=== PATIENT | female | born 1995 | race Asian ===

== ENCOUNTER → 2016-07-28 | Outpatient (REF) | payer OTHER ==
[~2016-07-28] MED LIST: ACET500C PO; ANUS2.5C2 PR; DOCU10CA PO; IBUP800T23 PO; MOM30SS PO; VITAPRTA PO
== END ==
LOC: M LAB REF 16:56
PROVIDERS: ATTEND Advanced Practice Midwife
DX: Z34.83 Encounter for supervision of other normal pregnancy, third trimester (principal)

== ENCOUNTER 2016-08-04 20:53 | Inpatient (IN) | payer OTHER ==
[~2016-08-04] VITALS: Ht 160 cm; Wt 64.0 kg
[2016-08-04] VITALS (10 sets, daily range): BP systolic 111–139; BP diastolic 57–78
[2016-08-04] MEDS ORDERED: LR 1,000 ML IV SCH (21:41)
[2016-08-04] MEDS ORDERED: LACTATED RINGER'S 1000 ML IV STA (21:41)
[2016-08-04] MEDS ORDERED: FENTANYL 2MCG/ML ROPIVACAINE 0.2% NACL 250 ML CADD As Ordered ONE (23:00)
[2016-08-04 23:05] LABS: MEAN CORPUSCULAR HEMOGLOBIN 22.4 pg (27.0-33.0); MEAN CORPUSCULAR HGB CONC 31.7 g/dl (32.0-36.5); MEAN CORPUSCULAR VOLUME 70.7 fl (80.0-96.0); RED CELL DISTRIBUTION WIDTH 15.3 % (11.5-14.5); WHITE BLOOD COUNT 11.2 K/mm3 (4.0-10.0)
[2016-08-04] MEDS ORDERED: diphenhydrAMINE INJ 50MG/ML VIAL (J1200) IV PRN (23:45)
[2016-08-04] MEDS ORDERED: EPIDURAL/PCA KEYS XX PRN (23:45)
[2016-08-04] MEDS ORDERED: ONDANSETRON 4MG/2ML VIAL (J2405) IV PRN (23:45)
[2016-08-04] MEDS ORDERED: EPIDURAL COMMENT XX SCH (23:45)
[2016-08-04] MEDS ORDERED: NALOXONE INJ 0.4 MG/1 ML VIAL (J2310) IV PRN (23:45)
[2016-08-04] MEDS ORDERED: FENTANYL/ROPIVACAINE/NACL CADD 250 ML EPIDURAL SCH (23:45)
[2016-08-04] MEDS ORDERED: ePHEDrine SULFATE 25 MG/5 ML(5MG/ML) SYRINGE IV PRN (23:45)
[2016-08-04] MEDS ORDERED: REFRIGERATOR IV KEYS XX PRN (23:45)
[2016-08-04] MEDS ORDERED: LACTATED RINGER'S 1000 ML IV PRN (23:45)
[2016-08-05] VITALS (19 sets, daily range): BP systolic 97–123; BP diastolic 53–81
[2016-08-05] MEDS ORDERED: PRENTAB9 PO (01:14)
[2016-08-05] MEDS ORDERED: VITA-112 PO (01:14)
[2016-08-05] MEDS ORDERED: OXYTOCIN 30 UNITS IN 0.9% NaCl 500ML IV BAG (J2590) As Ordered ONE (02:31)
[2016-08-05] MEDS ORDERED: LR 1,000 ML IV SCH (05:01)
[2016-08-05] MEDS ORDERED: OXYTOCIN DRIP 30 UNITS in APPROPRIATE DILUENT 1 EA IV SCH (05:01)
[2016-08-05] MEDS ORDERED: MEASLES,MUMPS,RUBELLA VACCINE INJ (MMR-II) (90707) SC SCH (05:15)
[2016-08-05] MEDS ORDERED: DIBUCAINE 1% OINTMENT 30GM TOP PRN (05:15)
[2016-08-05] MEDS ORDERED: ACETAMINOPHEN 500 MG TAB PO PRN (05:15)
[2016-08-05] MEDS ORDERED: RHOGAM 300 MCG (1500 IU) INJ (J2790) IM SCH (05:15)
[2016-08-05] MEDS ORDERED: ONDANSETRON 4MG/2ML VIAL (J2405) IV PRN (05:15)
[2016-08-05] MEDS ORDERED: DOCUSATE SODIUM 100 MG CAP PO PRN (05:15)
[2016-08-05] MEDS ORDERED: PROMETHAZINE 25 MG TAB PO PRN (05:15)
[2016-08-05] MEDS: PRENATAL VITAMIN TAB PO SCH (07:40)
[2016-08-05] MEDS: IBUPROFEN 800 MG TAB PO PRN (14:56)
[2016-08-06 06:11] VITALS: BP 111/57
[2016-08-06] MEDS: PRENATAL VITAMIN TAB PO SCH (07:41)
[2016-08-06] MEDS: IBUPROFEN 800 MG TAB PO PRN (07:41)
== END 2016-08-06 15:25 | disposition home or self-care (01) | DRG 560 ==
LOC: M LDO 20:53 → M LDI 21:32 → M OBS 08-05 06:34
PROVIDERS: ADMIT Obstetrics & Gynecology; ATTEND Obstetrics & Gynecology
PROC: 10E0XZZ Delivery of Products of Conception, External Approach (ICD-10-PCS; principal; 2016-08-05)
PROC: 0KQM0ZZ Repair Perineum Muscle, Open Approach (ICD-10-PCS; 2016-08-05)
PROC: 10907ZC Drainage of Amniotic Fluid, Therapeutic from Products of Conception, Via Natural or Artificial Opening (ICD-10-PCS; 2016-08-05)
DX: O70.1 Second degree perineal laceration during delivery (principal); Z37.0 Single live birth; Z3A.38 38 weeks gestation of pregnancy

== ENCOUNTER 2016-08-12 21:43 | Emergency (ER) | payer OTHER ==
[~2016-08-12 21:43] MED LIST changes: +PRENTAB9 PO; +VITA-112 PO
[2016-08-13] MEDS ORDERED: OXYCODONE/APAP 5MG/325MG(BULK) 1 TAB TAB As Ordered ONE (03:05)
--- NOTE | 2016-08-13 03:16 | EDDOCDS ---
Nurse's Notes [facility] Name: Chandra Ca Age: 21 yrs Sex: Female : 1995 Arrival Date: 08/12/2016 Time: 21:43 Bed 10 Private MD: NO PRIMARY PHYSICIAN, . Diagnosis: Hemorrhoids and perianal venous thrombosis Presentation: 08/12 21:47 Presenting complaint: Patient states: PER PT 1 WEEK AGO SHE HAD A VAGINAL DELIVERY & 2 tm5 DAYS AGO SHE DEVELOPED RECTAL PAIN & BLEEDING FROM HEMORRHOIDS, PT IS UNABLE TO HANDLE THE PAIN, CAN'T SIT WITHOUT SEVERE PAIN. Adult Sepsis Screening: The patient does not have new or worsening altered mentation. Patient's respiratory rate is less than 22. Systolic blood pressure is greater than 100. Patient has a qSOFA score of 0- Negative Sepsis Screen. Suicide/Homicide risk assessment- the patient denies having any suicidal and/or homicidal ideations and does not present with any other emotional, behavioral or mental health complaints. Status: Patient is not a human services professional or dependent. Transition of care: patient was not received from another setting of care. 21:47 Acuity: CARLOS Level 3 tm5 21:47 Method Of Arrival: Walkin/Carried/Asstd tm5 Triage Assessment: 21:50 General: Appears uncomfortable, Behavior is appropriate for age, cooperative. Pain: tm5 Location: RECTAL PAIN Pain currently is 7 out of 10 on a pain scale. Quality of pain is described as burning. Pt Declines HIV testing. Neurological: Level of Consciousness is awake, alert, Oriented to person, place, time. Respiratory: Airway Respiratory effort is even, unlabored, Respiratory pattern is regular, symmetrical. Derm: Skin is pink, warm & dry. normal. ENGRAVER MACHINE: 21:50 LMP N/A - Recent tm5 Historical: - Allergies: no known allergies; - Home Meds: 1. 1 mg Oral tab 2. Vitamin D Unknown Oral daily - PMHx: none; - PSHx: none; - Social history: Smoking status: Patient states was never smoker of tobacco. No barriers to communication noted, The patient speaks fluent Polish. - Family history: Not pertinent. - : The pt / caregiver states he / she is not on anticoagulants. Home medication list is obtained from the patient. - Exposure Risk Screening:: None identified. Screenin:51 Screening information is obtained from the patient. Fall risk: No risks identified. tm5 Assistance ADL's: requires no assistance with activities of daily living. Abuse/DV Screen: The patient / caregiver reports he/she is: not in a situation that causes fear, pain or injury. Nutritional screening: No deficits noted. Advance Directives: Currently, there is no health care proxy. There is no active DNR order. home support is adequate. Assessment: 08/13 00:17 General: Appears uncomfortable, Behavior is cooperative, quiet. Neurological: Level of nn1 Consciousness is awake, alert. Respiratory: Airway is patent Respiratory effort is even, unlabored, Respiratory pattern is regular, symmetrical. Derm: Skin is pink, warm & dry. 01:23 General: Appears uncomfortable, Behavior is cooperative. Pain: Location: rectal area tm5 Pain currently is 9 out of 10 on a pain scale. Quality of pain is described as burning. Neurological: Level of Consciousness is awake, alert, Oriented to person, place, time. Respiratory: Airway is patent Respiratory effort is even, unlabored, Respiratory pattern is regular, symmetrical. GI: No deficits noted. : No deficits noted. Derm: Skin is pink, warm & dry. normal. 03:14 Reassessment: Patient appears in no apparent distress at this time. Patient states tm5 symptoms have improved. Vital Signs: 08/12 21:45 BP 114 / 87; Pulse 110; Resp 20 S; Temp 98.9(O); Pulse Ox 99% on R/A; Weight 58.97 kg gr2 (R); Height 5 ft. 3 in. (160.02 cm) (R); Pain 10/10; 08/13 00:14 BP 117 / 80; Pulse 88; Resp 18; Temp 98.4; Pulse Ox 100% on R/A; nn1 03:14 BP 122 / 56; Pulse 78; Resp 18; Temp 98(O); Pulse Ox 99% on R/A; Pain 5/10; tm5 08/12 21:45 Body Mass Index 23.03 (58.97 kg, 160.02 cm) gr2 Vitals: 08/12 21:45 Log In Time: August 12, 2016 at 21:45. gr2 ED Course: 21:45 Patient visited by Marcial Brewster. gr2 21:45 NO PRIMARY PHYSICIAN, . is Private Physician. gr2 21:45 Patient moved to Waiting gr2 21:46 Patient visited by Marcial Brewster. gr2 21:46 Patient moved to Pre RCE gr2 21:50 Triage Initiated tm5 21:50 Family accompanied patient. tm5 08/13 01:21 Isabela Boland,JACLYN is Primary Nurse. nn1 01:21 Patient moved to 10 nn1 01:23 Patient visited by Rachael Marquez RN. tm5 01:23 Awaiting ED physician evaluation. tm5 01:23 The patient / caregiver is instructed regarding the plan of care and ED course. tm5 01:25 Maximino Cage DO is Attending Physician. mm11 01:26 Patient visited by Maximino Cage DO. mm11 01:47 Patient visited by Maximino Cage DO. mm11 02:51 Patient visited by Maximino Cage DO. mm11 02:52 Buster Burger MD is Referral Physician. mm11 03:05 Patient name changed from Chandra\S\\S\He\S\ to Chandra\S\ \S\He. EDMS 03:07 [facility] Payment Agreement was scanned into [employer] and attached to record. [facility] 03:14 Patient visited by Rachael Marquez RN. tm5 03:14 No IV's were initiated during this patient's visit. No procedures done that require tm5 assistance. Administered Medications: 03:07 Drug: oxyCODONE-acetaminophen 4 pack 1 packets [oxycodone-acetaminophen 5 mg-325 mg tm5 tablet (1 tabs)] {Co-Signature: [email or web address] (Tatyana Zamora RN).} Route: PO; 03:07 Follow up: Response: Med's dispensed home tm5 Order Results: There are currently no results for this order. Outcome: 02:53 Discharge ordered by Provider. 11 03:14 Discharge Assessment: Patient awake, alert and oriented x 3. No cognitive and/or tm5 functional deficits noted. Patient verbalized understanding of disposition instructions. patient administered narcotics - no. The following High Risk Discharge criteria are identified: None. Discharged to home ambulatory, with family. Condition: good Condition: stable. Discharge instructions given to patient, Instructed on discharge instructions, follow up and referral plans. medication usage, Demonstrated understanding of instructions, medications, Pt was receptive of discharge instructions/ teaching. No special radiology studies were completed. Property :Personal belongings accompany Pt. 03:15 Patient left the ED. tm5 Signatures: Dispatcher [employer] EDMS Maximino Cage DO DO mm11 Marcial Brewster gr2 Abigail Chilel Nikkole, RN RN nn1 Rachael Marquez RN RN tm5 Tatyana Zamora RN sls1 MTDD
--- NOTE | 2016-08-13 03:16 | EDDOCDS ---
Physician Documentation [facility] Name: Chandra Ca Age: 21 yrs Sex: Female : 1995 Arrival Date: 08/12/2016 Time: 21:43 Bed 10 Private MD: NO PRIMARY PHYSICIAN, . Disposition: 08/13/16 02:53 Discharged to Home/Self Care. Impression: Hemorrhoids and perianal venous thrombosis. - Condition is Stable. - Discharge Instructions: Hemorrhoids, Hemorrhoids, [id number]. - Local Pharmacy Hours, Medication Reconciliation form. - Follow up: Buster Burger MD; When: Today; Reason: Continuance of care. - Problem is an acute exacerbation. - Symptoms have improved. - Notes: CALL DR. BURGER'S OFFICE FIRST THING THIS MORNING AND HE WILL SEE YOU TO REMOVE THE BLOOD CLOTS. Historical: - Allergies: no known allergies; - Home Meds: 1. 1 mg Oral tab 2. Vitamin D Unknown Oral daily - PMHx: none; - PSHx: none; - Social history: Smoking status: Patient states was never smoker of tobacco. No barriers to communication noted, The patient speaks fluent Grenadian. - Family history: Not pertinent. - : The pt / caregiver states he / she is not on anticoagulants. Home medication list is obtained from the patient. - Exposure Risk Screening:: None identified. NETEZZA ARCHITECT: 08/12 21:50 LMP N/A - Recent tm5 Vital Signs: 21:45 BP 114 / 87; Pulse 110; Resp 20 S; Temp 98.9(O); Pulse Ox 99% on R/A; Weight 58.97 kg / gr2 130.01 lbs (R); Height 5 ft. 3 in. (160.02 cm) (R); Pain 10/10; 08/13 00:14 BP 117 / 80; Pulse 88; Resp 18; Temp 98.4; Pulse Ox 100% on R/A; nn1 03:14 BP 122 / 56; Pulse 78; Resp 18; Temp 98(O); Pulse Ox 99% on R/A; Pain 5/10; tm5 08/12 21:45 Body Mass Index 23.03 (58.97 kg, 160.02 cm) gr2 MDM: 02:10 Financial registration complete. [facility] 02:52 oxyCODONE-acetaminophen 4 pack 5 mg-325 mg 1 packets PO once; Dispense with pt, take as mm11 per instruction on package ordered. 03:07 [facility] Payment Agreement was scanned into [employer] and attached to record. [facility] Administered Medications: 03:07 Drug: oxyCODONE-acetaminophen 4 pack 1 packets [oxycodone-acetaminophen 5 mg-325 mg tm5 tablet (1 tabs)] {Co-Signature: [email or web address] (Tatyana Zamora RN).} Route: PO; 03:07 Follow up: Response: Med's dispensed home tm5 Signatures: Maximino Cage, DO mm11 Abigail Chilel Rachael Aguiar RN RN tm5 Tatyana Zamora RN sls1 The chart was reviewed and I authenticate all verbal orders and agree with the evaluation and treatment provided.Attachments: 03:07 [facility] Payment Agreement [facility] MTDDarcie
--- NOTE | 2016-08-15 04:16 | EDDOCDS ---
Physician Documentation [facility] Name: Chandra Ca Age: 21 yrs Sex: Female : 1995 Arrival Date: 08/12/2016 Time: 21:43 Bed 10 Private MD: NO PRIMARY PHYSICIAN, . Disposition: 08/13/16 02:53 Discharged to Home/Self Care. Impression: Hemorrhoids and perianal venous thrombosis. - Condition is Stable. - Discharge Instructions: Hemorrhoids, Hemorrhoids, [id number]. - Local Pharmacy Hours, Medication Reconciliation form. - Follow up: Buster Burger MD; When: Today; Reason: Continuance of care. - Problem is an acute exacerbation. - Symptoms have improved. - Notes: CALL DR. BURGER'S OFFICE FIRST THING THIS MORNING AND HE WILL SEE YOU TO REMOVE THE BLOOD CLOTS. Historical: - Allergies: no known allergies; - Home Meds: 1. 1 mg Oral tab 2. Vitamin D Unknown Oral daily - PMHx: none; - PSHx: none; - Social history: Smoking status: Patient states was never smoker of tobacco. No barriers to communication noted, The patient speaks fluent Colombian. - Family history: Not pertinent. - : The pt / caregiver states he / she is not on anticoagulants. Home medication list is obtained from the patient. - Exposure Risk Screening:: None identified. ACTIVITY AID: 08/12 21:50 LMP N/A - Recent tm5 Vital Signs: 21:45 BP 114 / 87; Pulse 110; Resp 20 S; Temp 98.9(O); Pulse Ox 99% on R/A; Weight 58.97 kg / gr2 130.01 lbs (R); Height 5 ft. 3 in. (160.02 cm) (R); Pain 10/10; 08/13 00:14 BP 117 / 80; Pulse 88; Resp 18; Temp 98.4; Pulse Ox 100% on R/A; nn1 03:14 BP 122 / 56; Pulse 78; Resp 18; Temp 98(O); Pulse Ox 99% on R/A; Pain 5/10; tm5 08/12 21:45 Body Mass Index 23.03 (58.97 kg, 160.02 cm) gr2 MDM: 02:10 Financial registration complete. [facility] 02:52 oxyCODONE-acetaminophen 4 pack 5 mg-325 mg 1 packets PO once; Dispense with pt, take as mm11 per instruction on package ordered. 03:07 [facility] Payment Agreement was scanned into [employer] and attached to record. [facility] 10:34 T-Sheet-- Draft Copy was scanned into [employer] and attached to record. gb Administered Medications: 03:07 Drug: oxyCODONE-acetaminophen 4 pack 1 packets [oxycodone-acetaminophen 5 mg-325 mg tm5 tablet (1 tabs)] {Co-Signature: [email or web address] (Tatyana Zamora RN).} Route: PO; 03:07 Follow up: Response: Med's dispensed home tm5 Signatures: Gina Zapata, Garrett Reg Maximino Vaughan DO DO mm11 Abigail Chilel [facility] Rachael Marquez,RN RN tm5 Tatyana Zamora RN sls1 The chart was reviewed and I authenticate all verbal orders and agree with the evaluation and treatment provided.Attachments: 03: [facility] Payment Agreement [facility] 10:34 T-Sheet-- Draft Copy gb Chart Complete MTDD
--- NOTE | 2016-08-15 04:16 | EDDOCDS ---
Physician Documentation [facility] Name: Chandra Ca Age: 21 yrs Sex: Female : 1995 Arrival Date: 08/12/2016 Time: 21:43 Bed 10 Private MD: NO PRIMARY PHYSICIAN, . Disposition: 08/13/16 02:53 Discharged to Home/Self Care. Impression: Hemorrhoids and perianal venous thrombosis. - Condition is Stable. - Discharge Instructions: Hemorrhoids, Hemorrhoids, [id number]. - Local Pharmacy Hours, Medication Reconciliation form. - Follow up: Buster Burger MD; When: Today; Reason: Continuance of care. - Problem is an acute exacerbation. - Symptoms have improved. - Notes: CALL DR. BURGER'S OFFICE FIRST THING THIS MORNING AND HE WILL SEE YOU TO REMOVE THE BLOOD CLOTS. Historical: - Allergies: no known allergies; - Home Meds: 1. 1 mg Oral tab 2. Vitamin D Unknown Oral daily - PMHx: none; - PSHx: none; - Social history: Smoking status: Patient states was never smoker of tobacco. No barriers to communication noted, The patient speaks fluent Australian. - Family history: Not pertinent. - : The pt / caregiver states he / she is not on anticoagulants. Home medication list is obtained from the patient. - Exposure Risk Screening:: None identified. ADMISSIONS SPECIALIST: 08/12 21:50 LMP N/A - Recent tm5 Vital Signs: 21:45 BP 114 / 87; Pulse 110; Resp 20 S; Temp 98.9(O); Pulse Ox 99% on R/A; Weight 58.97 kg / gr2 130.01 lbs (R); Height 5 ft. 3 in. (160.02 cm) (R); Pain 10/10; 08/13 00:14 BP 117 / 80; Pulse 88; Resp 18; Temp 98.4; Pulse Ox 100% on R/A; nn1 03:14 BP 122 / 56; Pulse 78; Resp 18; Temp 98(O); Pulse Ox 99% on R/A; Pain 5/10; tm5 08/12 21:45 Body Mass Index 23.03 (58.97 kg, 160.02 cm) gr2 MDM: 02:10 Financial registration complete. [facility] 02:52 oxyCODONE-acetaminophen 4 pack 5 mg-325 mg 1 packets PO once; Dispense with pt, take as mm11 per instruction on package ordered. 03:07 [facility] Payment Agreement was scanned into [employer] and attached to record. [facility] 10:34 T-Sheet-- Draft Copy was scanned into [employer] and attached to record. gb Administered Medications: 03:07 Drug: oxyCODONE-acetaminophen 4 pack 1 packets [oxycodone-acetaminophen 5 mg-325 mg tm5 tablet (1 tabs)] {Co-Signature: [email or web address] (Tatyana Zamora RN).} Route: PO; 03:07 Follow up: Response: Med's dispensed home tm5 Signatures: Gina Zapata, Garrett Reg Maximino Vaughan DO DO mm11 Abigail Chilel [facility] Rachael Marquez,RN RN tm5 Tatyana Zamora RN sls1 The chart was reviewed and I authenticate all verbal orders and agree with the evaluation and treatment provided.Attachments: 03: [facility] Payment Agreement [facility] 10:34 T-Sheet-- Draft Copy gb Chart Complete MTDD
--- NOTE | 2016-08-15 04:16 | EDDOCDS ---
Nurse's Notes [facility] Name: Chandra Ca Age: 21 yrs Sex: Female : 1995 Arrival Date: 08/12/2016 Time: 21:43 Bed 10 Private MD: NO PRIMARY PHYSICIAN, . Diagnosis: Hemorrhoids and perianal venous thrombosis Presentation: 08/12 21:47 Presenting complaint: Patient states: PER PT 1 WEEK AGO SHE HAD A VAGINAL DELIVERY & 2 tm5 DAYS AGO SHE DEVELOPED RECTAL PAIN & BLEEDING FROM HEMORRHOIDS, PT IS UNABLE TO HANDLE THE PAIN, CAN'T SIT WITHOUT SEVERE PAIN. Adult Sepsis Screening: The patient does not have new or worsening altered mentation. Patient's respiratory rate is less than 22. Systolic blood pressure is greater than 100. Patient has a qSOFA score of 0- Negative Sepsis Screen. Suicide/Homicide risk assessment- the patient denies having any suicidal and/or homicidal ideations and does not present with any other emotional, behavioral or mental health complaints. 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 Transition of care: patient was not received from another setting of care. 21:47 Acuity: CARLSO Level 3 tm5 21:47 Method Of Arrival: Walkin/Carried/Asstd tm5 Triage Assessment: 21:50 General: Appears uncomfortable, Behavior is appropriate for age, cooperative. Pain: tm5 Location: RECTAL PAIN Pain currently is 7 out of 10 on a pain scale. Quality of pain is described as burning. Pt Declines HIV testing. Neurological: Level of Consciousness is awake, alert, Oriented to person, place, time. Respiratory: Airway Respiratory effort is even, unlabored, Respiratory pattern is regular, symmetrical. Derm: Skin is pink, warm & dry. normal. RELEASE OF INFORMATION SPECIALIST: 21:50 LMP N/A - Recent tm5 Historical: - Allergies: no known allergies; - Home Meds: 1. 1 mg Oral tab 2. Vitamin D Unknown Oral daily - PMHx: none; - PSHx: none; - Social history: Smoking status: Patient states was never smoker of tobacco. No barriers to communication noted, The patient speaks fluent Pashto. - Family history: Not pertinent. - : The pt / caregiver states he / she is not on anticoagulants. Home medication list is obtained from the patient. - Exposure Risk Screening:: None identified. Screenin:51 Screening information is obtained from the patient. Fall risk: No risks identified. tm5 Assistance ADL's: requires no assistance with activities of daily living. Abuse/DV Screen: The patient / caregiver reports he/she is: not in a situation that causes fear, pain or injury. Nutritional screening: No deficits noted. Advance Directives: Currently, there is no health care proxy. There is no active DNR order. home support is adequate. Assessment: 08/13 00:17 General: Appears uncomfortable, Behavior is cooperative, quiet. Neurological: Level of nn1 Consciousness is awake, alert. Respiratory: Airway is patent Respiratory effort is even, unlabored, Respiratory pattern is regular, symmetrical. Derm: Skin is pink, warm & dry. 01:23 General: Appears uncomfortable, Behavior is cooperative. Pain: Location: rectal area tm5 Pain currently is 9 out of 10 on a pain scale. Quality of pain is described as burning. Neurological: Level of Consciousness is awake, alert, Oriented to person, place, time. Respiratory: Airway is patent Respiratory effort is even, unlabored, Respiratory pattern is regular, symmetrical. GI: No deficits noted. : No deficits noted. Derm: Skin is pink, warm & dry. normal. 03:14 Reassessment: Patient appears in no apparent distress at this time. Patient states tm5 symptoms have improved. Vital Signs: 08/12 21:45 BP 114 / 87; Pulse 110; Resp 20 S; Temp 98.9(O); Pulse Ox 99% on R/A; Weight 58.97 kg gr2 (R); Height 5 ft. 3 in. (160.02 cm) (R); Pain 10/10; 08/13 00:14 BP 117 / 80; Pulse 88; Resp 18; Temp 98.4; Pulse Ox 100% on R/A; nn1 03:14 BP 122 / 56; Pulse 78; Resp 18; Temp 98(O); Pulse Ox 99% on R/A; Pain 5/10; tm5 08/12 21:45 Body Mass Index 23.03 (58.97 kg, 160.02 cm) gr2 Vitals: 08/12 21:45 Log In Time: August 12, 2016 at 21:45. gr2 ED Course: 21:45 Patient visited by Marcial Brewster. gr2 21:45 NO PRIMARY PHYSICIAN, . is Private Physician. gr2 21:45 Patient moved to Waiting gr2 21:46 Patient visited by Marcial Brewster. gr2 21:46 Patient moved to Pre RCE gr2 21:50 Triage Initiated tm5 21:50 Family accompanied patient. tm5 08/13 01:21 Isabela Boland,JACLYN is Primary Nurse. nn1 01:21 Patient moved to 10 nn1 01:23 Patient visited by Rachael Marquez RN. tm5 01:23 Awaiting ED physician evaluation. tm5 01:23 The patient / caregiver is instructed regarding the plan of care and ED course. tm5 01:25 Maximino Cage DO is Attending Physician. mm11 01:26 Patient visited by Maximino Cage DO. mm11 01:47 Patient visited by Maximino Cage DO. mm11 02:51 Patient visited by Maximino Cage DO. mm11 02:52 Buster Burger MD is Referral Physician. mm11 03:05 Patient name changed from Chandra\S\\S\He\S\ to Chandra\S\ \S\He. EDMS 03:07 [facility] [place] was scanned into [employer] and attached to record. [facility] 03:14 Patient visited by Rachael Marquez RN. tm5 03:14 No IV's were initiated during this patient's visit. No procedures done that require tm5 assistance. 10:34 T-Sheet-- Draft Copy was scanned into [employer] and attached to record. gb Administered Medications: 03:07 Drug: oxyCODONE-acetaminophen 4 pack 1 packets [oxycodone-acetaminophen 5 mg-325 mg tm5 tablet (1 tabs)] {Co-Signature: [email or web address] (Tatyana Zamora RN).} Route: PO; 03:07 Follow up: Response: Med's dispensed home tm5 Order Results: There are currently no results for this order. Outcome: 02:53 Discharge ordered by Provider. mm11 03:14 Discharge Assessment: Patient awake, alert and oriented x 3. No cognitive and/or tm5 functional deficits noted. Patient verbalized understanding of disposition instructions. patient administered narcotics - no. The following High Risk Discharge criteria are identified: None. Discharged to home ambulatory, with family. Condition: good Condition: stable. Discharge instructions given to patient, Instructed on discharge instructions, follow up and referral plans. medication usage, Demonstrated understanding of instructions, medications, Pt was receptive of discharge instructions/ teaching. No special radiology studies were completed. Property :Personal belongings accompany Pt. 03:15 Patient left the ED. tm5 Signatures: Dispatcher [employer] EDMS Gina Zapata, Reg Reg gb Maximino Cage, DO mm11 Marcial Brewster gr2 Abigail Chilel NikkoleRN RN nn1 Rachael MarquezRN RN tm5 Tatyana Zamora RN sls1 Chart Complete MTDD
== END 2016-08-13 03:15 | disposition home or self-care (01) ==
LOC: M ED 21:43
DX: K64.9 Unspecified hemorrhoids (principal)

== ENCOUNTER → 2017-01-28 | Outpatient (REF) | payer OTHER ==
[~2017-01-28] MED LIST changes: +IBUP1TAB7 PO; -IBUP800T23 PO
== END ==
LOC: M SFHCLERA 11:19
PROVIDERS: ATTEND Physician Assistant
DX: Z11.3 Encounter for screening for infections with a predominantly sexual mode of transmission (principal)

== ENCOUNTER → 2017-01-31 | Outpatient (CLI) | payer OTHER ==
--- NOTE | 2017-01-31 11:46 | REP ---
Positive PPD. COMPARISON: None. FINDINGS: The superior mediastinal structures are midline. The cardiac silhouette is unremarkable in size, shape, and position. The diaphragmatic surfaces of the lungs are regular, and the costophrenic angles are clear. The pulmonary hand are clear. The imaged osseous structures are intact. IMPRESSION: There is no acute cardiopulmonary disease. If clinical suspicion is high, CT is more sensitive. Signed by Russel Owen DO 01/31/2017 01:58 P
== END ==
LOC: M LRY 11:05
PROVIDERS: ATTEND Nurse Practitioner Family
DX: R76.11 Nonspecific reaction to tuberculin skin test without active tuberculosis (principal)

== ENCOUNTER → 2018-06-21 | Outpatient (CLI) | payer OTHER ==
[2018-06-21 13:00] LABS: CONTROL LINE HCG INT CTR LINE PRESENT; HCG, SERUM QUALITATIVE NEGATIVE (NEGATIVE)
== END ==
LOC: M SMT 09:50
DX: N92.6 Irregular menstruation, unspecified (principal)
CPT/HCPCS: 84443

== ENCOUNTER → 2018-06-30 | Outpatient (REF) | payer OTHER | LOC: M LAB REF 13:29 | DX: Z12.4 Encounter for screening for malignant neoplasm of cervix (principal) ==

== ENCOUNTER → 2018-10-24 | Outpatient (REF) | payer OTHER | LOC: M SFHCLERA 15:07 | PROVIDERS: ATTEND Physician Assistant | DX: J02.9 Acute pharyngitis, unspecified (principal) ==

== ENCOUNTER → 2021-02-06 | Outpatient (CLI) | payer OTHER ==
[2021-02-06 13:16] LABS: BASO % 0.5 % (0.0-1.0); EOS # 0.2 10^3/uL (0.0-0.5); EOS % 3.5 % (0.0-3.0); HEMOGLOBIN 12.4 g/dl (12.0-15.5); LYMPH # 1.9 10^3/uL (1.5-5.0); LYMPH % 28.5 % (24.0-44.0); MEAN CORPUSCULAR HEMOGLOBIN 21.5 pg (27.0-33.0); MEAN CORPUSCULAR HGB CONC 30.2 g/dl (32.0-36.5); MEAN CORPUSCULAR VOLUME 71.2 fl (80.0-96.0); MONO # 0.4 10^3/uL (0.0-0.8); MONO % 6.8 % (2.0-8.0); NEUTROPHILS # 3.9 10^3/uL (1.5-8.5); NEUTROPHILS % 60.5 % (36.0-66.0); PLATELET COUNT, AUTOMATED 298 10^3/uL (150-450); RED BLOOD COUNT 5.76 10^6/uL (4.00-5.40); WHITE BLOOD COUNT 6.5 10^3/uL (4.0-10.0)
[2021-02-06 13:44] LABS: ALBUMIN 4.3 GM/DL (3.2-5.2); ALT/SGPT 24 U/L (12-78); BILIRUBIN,TOTAL 0.5 MG/DL (0.2-1.0); BLOOD UREA NITROGEN 10 MG/DL (7-18); CALCIUM LEVEL 8.8 MG/DL (8.5-10.1); CARBON DIOXIDE LEVEL 29 MEQ/L (21-32); CHLORIDE LEVEL 108 MEQ/L (98-107); CREATININE FOR GFR 0.45 MG/DL (0.55-1.30); GLOMERULAR FILTRATION RATE > 60.0 (>60); GLUCOSE, FASTING 89 MG/DL (70-100); POTASSIUM SERUM 3.7 MEQ/L (3.5-5.1); SODIUM LEVEL 136 MEQ/L (136-145)
[2021-02-06 13:51] LABS: TOTAL 25(OH) VITAMIN D 21.7 NG/ML (30.0-100.0)
== END ==
LOC: M PLALAB 10:16
PROVIDERS: ATTEND Nurse Practitioner Family
DX: E55.9 Vitamin D deficiency, unspecified (principal)

== ENCOUNTER → 2022-02-24 | Outpatient (CLI) | payer OTHER ==
[2022-02-24 14:24] LABS: BASO # 0.1 10^3/uL (0.0-0.2); BASO % 0.6 % (0.0-1.0); EOS # 0.3 10^3/uL (0.0-0.5); EOS % 3.5 % (0.0-3.0); HEMATOCRIT 40.8 % (36.0-47.0); HEMOGLOBIN 12.3 g/dl (12.0-15.5); LYMPH # 2.1 10^3/uL (1.5-5.0); LYMPH % 25.6 % (24.0-44.0); MEAN CORPUSCULAR HEMOGLOBIN 21.4 pg (27.0-33.0); MEAN CORPUSCULAR HGB CONC 30.1 g/dl (32.0-36.5); MONO # 0.5 10^3/uL (0.0-0.8); MONO % 6.7 % (2.0-8.0); NEUTROPHILS # 5.1 10^3/uL (1.5-8.5); NEUTROPHILS % 63.2 % (36.0-66.0); PLATELET COUNT, AUTOMATED 262 10^3/uL (150-450); RED BLOOD COUNT 5.75 10^6/uL (4.00-5.40); WHITE BLOOD COUNT 8.1 10^3/uL (4.0-10.0)
[2022-02-24 15:25] LABS: ALBUMIN 3.9 GM/DL (3.2-5.2); ALT/SGPT 27 U/L (12-78); BILIRUBIN,TOTAL 0.4 MG/DL (0.2-1.0); BLOOD UREA NITROGEN 12 MG/DL (7-18); CALCIUM LEVEL 8.8 MG/DL (8.5-10.1); CARBON DIOXIDE LEVEL 28 MEQ/L (21-32); CHLORIDE LEVEL 104 MEQ/L (98-107); CREATININE FOR GFR 0.47 MG/DL (0.55-1.30); FERRITIN 79 NG/ML (8-252); GLOMERULAR FILTRATION RATE > 60.0 (>60); GLUCOSE, FASTING 90 MG/DL (70-100); IRON (FE) 93 UG/DL (50-170); PERCENT SATURATION 34.2 % (13.2-45.0); POTASSIUM SERUM 3.9 MEQ/L (3.5-5.1); SODIUM LEVEL 137 MEQ/L (136-145); TOTAL IRON BINDING CAPACITY 272 UG/DL (250-450); TOTAL PROTEIN 7.8 GM/DL (6.4-8.2)
== END ==
LOC: M PLALAB 09:47
PROVIDERS: ATTEND Nurse Practitioner Family
DX: R71.8 Other abnormality of red blood cells (principal)

== ENCOUNTER → 2023-03-15 | Outpatient (CLI) | payer OTHER ==
[2023-03-15 10:14] LABS: BASO # 0.1 10^3/uL (0.0-0.2); BASO % 0.6 % (0.0-1.0); EOS # 0.3 10^3/uL (0.0-0.5); EOS % 3.5 % (0.0-3.0); HEMATOCRIT 39.1 % (36.0-47.0); LYMPH # 1.8 10^3/uL (1.5-5.0); LYMPH % 20.5 % (24.0-44.0); MEAN CORPUSCULAR HEMOGLOBIN 21.8 pg (27.0-33.0); MEAN CORPUSCULAR HGB CONC 30.7 g/dl (32.0-36.5); MONO # 0.5 10^3/uL (0.0-0.8); MONO % 6.2 % (2.0-8.0); PLATELET COUNT, AUTOMATED 261 10^3/uL (150-450); RED BLOOD COUNT 5.51 10^6/uL (4.00-5.40); WHITE BLOOD COUNT 8.7 10^3/uL (4.0-10.0)
[2023-03-15 10:29] LABS: BLOOD UREA NITROGEN 11 MG/DL (9-23); CALCIUM LEVEL 8.7 MG/DL (8.5-10.1); CARBON DIOXIDE LEVEL 28 MMOL/L (20-31); CHLORIDE LEVEL 104 MMOL/L (98-107); CHOLESTEROL LEVEL 176 MG/DL (<200); CHOLESTEROL RISK RATIO 3.56 (<5); CREATININE FOR GFR 0.42 MG/DL (0.55-1.30); GLOMERULAR FILTRATION RATE > 60.0 (>60); GLUCOSE, FASTING 81 MG/DL (60-100); HDL CHOLESTEROL 49.3 MG/DL (>40); LDL CHOLESTEROL 111.7 MG/DL (<100); NON-HDL-C 126.7 MG/DL; POTASSIUM SERUM 3.9 MMOL/L (3.5-5.1); SODIUM LEVEL 140 MMOL/L (136-145); TRIGLYCERIDES LEVEL 75 MG/DL (<150)
[2023-03-15 10:33] LABS: FREE T3 3.8 PG/ML (2.3-4.2); FREE T4 0.96 NG/DL (0.89-1.76); THYROID STIMULATING HORMONE 3.328 uIU/ML (0.55-4.78)
[2023-03-15 10:40] LABS: THYROID PEROXIDASE ANTIBODY > 1300.0 U/ML (<60.0)
== END ==
LOC: M PLALAB 08:16
PROVIDERS: ATTEND Nurse Practitioner Family
DX: E03.9 Hypothyroidism, unspecified (principal); E78.2 Mixed hyperlipidemia

== ENCOUNTER → 2024-04-20 | Outpatient (CLI) | payer OTHER ==
[2024-04-20 16:05] LABS: BASO % 0.4 % (0.0-1.0); EOS # 0.1 10^3/uL (0.0-0.5); EOS % 1.1 % (0.0-3.0); HEMATOCRIT 40.6 % (36.0-47.0); HEMOGLOBIN 12.7 g/dl (12.0-15.5); LYMPH # 2.8 10^3/uL (1.5-5.0); MEAN CORPUSCULAR HEMOGLOBIN 21.7 pg (27.0-33.0); MEAN CORPUSCULAR HGB CONC 31.3 g/dl (32.0-36.5); MEAN CORPUSCULAR VOLUME 69.5 fl (80.0-96.0); MONO # 0.6 10^3/uL (0.0-0.8); MONO % 7.1 % (2.0-8.0); NEUTROPHILS # 5.4 10^3/uL (1.5-8.5); NEUTROPHILS % 60.2 % (36.0-66.0); PLATELET COUNT, AUTOMATED 278 10^3/uL (150-450); RED BLOOD COUNT 5.84 10^6/uL (4.00-5.40)
[2024-04-20 16:13] LABS: ALBUMIN 4.4 G/DL (3.2-5.2); ALKALINE PHOSPHATASE 47 U/L (46-116); ALT/SGPT 17 U/L (7.0-40); AST/SGOT 11 U/L (<34); BILIRUBIN,TOTAL 0.7 MG/DL (0.3-1.2); BLOOD UREA NITROGEN 12 MG/DL (9-23); CALCIUM LEVEL 9.2 MG/DL (8.5-10.1); CARBON DIOXIDE LEVEL 26 MMOL/L (20-31); CHLORIDE LEVEL 105 MMOL/L (98-107); CHOLESTEROL LEVEL 200 MG/DL (<200); CREATININE FOR GFR 0.45 MG/DL (0.55-1.30); GLOMERULAR FILTRATION RATE > 60.0 (>60); GLUCOSE, FASTING 76 MG/DL (60-100); POTASSIUM SERUM 3.6 MMOL/L (3.5-5.1); SODIUM LEVEL 135 MMOL/L (136-145); TRIGLYCERIDES LEVEL 47 MG/DL (<150)
[2024-04-20 16:15] LABS: THYROID STIMULATING HORMONE 3.046 uIU/ML (0.55-4.78)
[2024-04-20 16:16] LABS: THYROID PEROXIDASE ANTIBODY > 1300.0 U/ML (<60.0)
[2024-04-20 22:49] LABS: CHOLESTEROL RISK RATIO 3.47 (<5); HDL CHOLESTEROL 57.6 MG/DL (>40); NON-HDL-C 142.4 MG/DL
== END ==
LOC: M PLALAB 11:59
PROVIDERS: ATTEND Nurse Practitioner Family
DX: Z00.00 Encounter for general adult medical examination without abnormal findings (principal); E03.9 Hypothyroidism, unspecified; E55.9 Vitamin D deficiency, unspecified; E78.2 Mixed hyperlipidemia

== ENCOUNTER → 2024-04-27 | Outpatient (CLI) | payer OTHER ==
[2024-04-27 16:10] LABS: BASO % 0.5 % (0.0-1.0); EOS # 0.2 10^3/uL (0.0-0.5); EOS % 3.2 % (0.0-3.0); HEMATOCRIT 39.3 % (36.0-47.0); HEMOGLOBIN 12.2 g/dl (12.0-15.5); LYMPH # 2.1 10^3/uL (1.5-5.0); LYMPH % 28.5 % (24.0-44.0); MEAN CORPUSCULAR HEMOGLOBIN 21.9 pg (27.0-33.0); MEAN CORPUSCULAR VOLUME 70.6 fl (80.0-96.0); MONO # 0.6 10^3/uL (0.0-0.8); MONO % 7.4 % (2.0-8.0); NEUTROPHILS # 4.5 10^3/uL (1.5-8.5); NEUTROPHILS % 60.1 % (36.0-66.0); PLATELET COUNT, AUTOMATED 221 10^3/uL (150-450); RED BLOOD COUNT 5.57 10^6/uL (4.00-5.40); WHITE BLOOD COUNT 7.5 10^3/uL (4.0-10.0)
== END ==
LOC: M PLALAB 08:53
PROVIDERS: ATTEND Nurse Practitioner Family
DX: R71.8 Other abnormality of red blood cells (principal)

== ENCOUNTER → 2025-04-23 | Outpatient (CLI) | payer OTHER ==
[2025-04-23 15:11] LABS: BASO # 0.0 10^3/uL (0.0-0.2); BASO % 0.6 % (0.0-1.0); EOS # 0.2 10^3/uL (0.0-0.5); EOS % 2.9 % (0.0-3.0); LYMPH # 1.7 10^3/uL (1.5-5.0); LYMPH % 24.6 % (24.0-44.0); MONO # 0.4 10^3/uL (0.0-0.8); MONO % 6.5 % (2.0-8.0); NEUTROPHILS # 4.4 10^3/uL (1.5-8.5); NEUTROPHILS % 65.1 % (36.0-66.0); PLATELET COUNT, AUTOMATED 288 10^3/uL (150-450)
[2025-04-23 15:24] LABS: TOTAL 25(OH) VITAMIN D 22.2 NG/ML (20.0-100.0)
[2025-04-23 15:25] LABS: FREE T4 1.13 NG/DL (0.89-1.76)
[2025-04-23 15:26] LABS: ALT/SGPT 13 U/L (7.0-40); AST/SGOT 16 U/L (<34); CALCIUM LEVEL 8.5 MG/DL (8.5-10.1); CARBON DIOXIDE LEVEL 27 MMOL/L (20-31); CHLORIDE LEVEL 104 MMOL/L (98-107); CHOLESTEROL LEVEL 205 MG/DL (<200); CHOLESTEROL RISK RATIO 3.81 (<5); CREATININE FOR GFR 0.43 MG/DL (0.55-1.30); GLOMERULAR FILTRATION RATE > 90.0 (>60); IRON (FE) 102 UG/DL (50-170); LDL CHOLESTEROL 139.7 MG/DL (<100); NON-HDL-C 151.3 MG/DL; POTASSIUM SERUM 3.5 MMOL/L (3.5-5.1); SODIUM LEVEL 136 MMOL/L (136-145); TRIGLYCERIDES LEVEL 58 MG/DL (<150)
== END ==
LOC: M PLALAB 08:19
PROVIDERS: ATTEND Nurse Practitioner Family
DX: Z00.00 Encounter for general adult medical examination without abnormal findings (principal); R71.8 Other abnormality of red blood cells; E55.9 Vitamin D deficiency, unspecified; E03.9 Hypothyroidism, unspecified

== ENCOUNTER → 2025-05-14 | Outpatient (CLI) | payer OTHER | LOC: M PLALAB 08:04 | PROVIDERS: ATTEND Nurse Practitioner Family | DX: R71.8 Other abnormality of red blood cells (principal) ==

== ENCOUNTER → 2025-07-02 | Outpatient (REF) | payer OTHER ==
[2025-07-04 13:50] LABS: HPV APTIMA Not Detected (Not Detected)
== END ==
LOC: M SFHCWAGY 18:06
PROVIDERS: ATTEND Nurse Practitioner Family
DX: Z12.4 Encounter for screening for malignant neoplasm of cervix (principal)